=== PATIENT | female | born 2000 | race African-American/Black ===

== ENCOUNTER 2018-08-08 00:25 | Emergency (ER) | payer MEDICAID ==
[~2018-08-08] VITALS: Ht 157.5 cm; Wt 47.0 kg
[2018-08-08 02:32] VITALS: BP 112/75
[2018-08-08] MEDS ORDERED: TOBRAMYCIN 0.3% OPHTH DROPS 5ML OP SCH (04:00)
== END 2018-08-08 02:36 | disposition home or self-care (01) ==
LOC: ER 00:25
DX: H10.022 Other mucopurulent conjunctivitis, left eye (principal)
CPT/HCPCS: 99283

== ENCOUNTER 2018-09-05 01:05 | Emergency (ER) | payer MEDICAID ==
[~2018-09-05] VITALS: Ht 162.6 cm; Wt 42.5 kg
[2018-09-05 06:15] VITALS: BP 107/72
== END 2018-09-05 06:38 | disposition home or self-care (01) ==
LOC: ER 01:05
DX: J06.9 Acute upper respiratory infection, unspecified (principal)
CPT/HCPCS: 71045; 81025; 99283

== ENCOUNTER 2019-04-11 07:30 | Emergency (ER) | payer MEDICAID ==
[~2019-04-11] VITALS: Ht 157.5 cm; Wt 41.5 kg
[2019-04-11 08:25] VITALS: BP 102/65
== END 2019-04-11 08:35 | disposition home or self-care (01) ==
LOC: ER 07:30
DX: J03.90 Acute tonsillitis, unspecified (principal)
CPT/HCPCS: 99282

== ENCOUNTER 2019-06-20 03:02 | Emergency (ER) | payer MEDICAID ==
[~2019-06-20] VITALS: Ht 157.5 cm; Wt 46.0 kg
[2019-06-20 05:22] LABS: CLARITY URINE CLEAR (CLEAR); COLOR URINE YELLOW (YELLOW); KETONES URINE NEGATIVE (NEGATIVE); LEUKOCYTE ESTERASE URINE NEGATIVE (NEGATIVE); NITRITE URINE NEGATIVE (NEGATIVE); OCCULT BLOOD URINE NEGATIVE (NEGATIVE); PH URINE 7.5 (4.5-8.0); PROTEIN URINE NEGATIVE (NEGATIVE); SPECIFIC GRAVITY URINE 1.004 (1.005-1.030); UROBILINOGEN URINE 0.2 E.U./dL (0.2-1.0)
[2019-06-20 05:57] LABS: BASOPHILS % 0.3 % (0.0-2.0); EOSINOPHILS % 0.1 % (0.0-5.0); HEMATOCRIT. 31.8 % (36.0-48.0); HEMOGLOBIN. 10.7 g/dL (12.0-16.0); LYMPHOCYTES % 13.2 % (20.0-50.0); MEAN CORPUSCULAR HEMOGLOBIN 27.1 pg (28.0-32.0); MEAN CORPUSCULAR VOLUME 80.6 fL (81.0-99.0); MEAN PLATELET VOLUME 7.8 fl (7.4-10.4); MONOCYTES % 4.1 % (2.0-8.0); NEUTROPHILS % 82.3 % (40.0-76.0); PLATELET 281 x1000/uL (130-400); RED BLOOD CELL COUNT 3.95 mill/uL (4.2-5.4); RED CELL DISTRIBUTION WIDTH 13.1 % (11.6-14.6)
[2019-06-20 06:01] LABS: CHLORIDE 107 mEq/L (98-107); PROTHROMBIN TIME 10.7 sec (9.6-11.0)
[2019-06-20] MEDS ORDERED: ACETAMINOPHEN 325MG TABLET PO PRN (07:00)
[2019-06-20 09:48] VITALS: BP 101/58
== END 2019-06-20 09:51 | disposition home or self-care (01) ==
LOC: ER 03:02
DX: O26.891 Other specified pregnancy related conditions, first trimester (principal); R10.30 Lower abdominal pain, unspecified; Z3A.14 14 weeks gestation of pregnancy
CPT/HCPCS: 36415; 76805; 81003; 81025; 84702; 99284

== ENCOUNTER 2019-10-28 12:57 | Observation (INO) | payer MEDICAID | END 2019-10-28 15:13 | disposition home or self-care (01) | LOC: ER 12:57 → UNDOADMOB 14:07 → OB TRIAGE 14:07 → 8 EST A/PP 14:32 | PROVIDERS: ADMIT Obstetrics & Gynecology; ATTEND Obstetrics & Gynecology | DX: O26.893 Other specified pregnancy related conditions, third trimester (principal); R10.9 Unspecified abdominal pain; Z3A.32 32 weeks gestation of pregnancy | CPT/HCPCS: 99281; G0378 ==

== ENCOUNTER 2019-10-28 15:37 | Emergency (ER) | payer MEDICAID | END 2019-10-28 16:47 | disposition left against medical advice (07) | LOC: ER 15:37 | DX: J02.9 Acute pharyngitis, unspecified (principal); Z53.21 Procedure and treatment not carried out due to patient leaving prior to being seen by health care provider ==